=== PATIENT | female | born 1960 | race Caucasian/White ===

== ENCOUNTER 2018-10-27 11:39 | Emergency (ER) | payer SELFPAY ==
[2018-10-27] VITALS (7 sets, daily range): BP systolic 169–183; BP diastolic 90–108; PULSE 80–100; RESP 13–29; TEMP 36.3–36.8; O2SAT 96–99; BMI 25.8
--- NOTE | 2018-10-27 11:46 | DI.RAD.S_ITS ---
PROCEDURE: XR CHEST 1V INDICATIONS: chest pain TECHNIQUE: One view of the chest was acquired. COMPARISON: None. FINDINGS: Surgical changes and devices: None. Lungs and pleura: Lungs are clear. No pleural effusions or pneumothorax. Mediastinum: Mediastinal contours appear normal. Heart size is normal. Bones and chest wall: No suspicious bony lesions. Overlying soft tissues appear unremarkable. IMPRESSION: No acute pulmonary process. Dictated by: Norma Harper M.D. on 10/27/2018 at 12:15 Approved by: Norma Harper M.D. on 10/27/2018 at 12:15
--- NOTE | 2018-10-27 11:52 | ED.CHESTPAIN ---
HPI - Chest Pain General Chief Complaint: Chest Pain Stated Complaint: Chest Pain Time Seen by Provider: 10/27/18 11:46 Source: patient, EMS and police Mode of arrival: EMS Limitations: no limitations History of Present Illness HPI narrative: 58-year-old female smoker with cardiac history presents by EMS and police with sudden onset retrosternal chest pressure that started while she was being arrested this morning. She states the pain was squeezing and pressure-like but denies radiation, provocation. She states that it got better when the medics gave her aspirin and nitro. She denies associated symptoms such as diaphoresis, nausea, vomiting or shortness of breath but she did feel a bit lightheaded. She had CT while incarcerated in 2002 but has had no provocative testing or ongoing cardiac evaluations since then. She does have a history of hypertension and most recently took her metoprolol late last night. She denies any recent history of injury, long distance travel, blood clots or other risks for pulmonary embolism MD complaint: chest pain Onset (ago): minute(s) Duration: now resolved Severity: moderate Severity scale (1-10): 7 Quality: tightness Pain radiation: none Relieving factors: nitroglycerin Exacerbating factors: nothing Treatments prior to arrival chest pain: aspirin and nitroglycerin Related Data On Oral Contraceptives: No Allergies Allergy/AdvReac Type Severity Reaction Status Date / Time No Known Drug Allergies Allergy Verified 10/27/18 12:25 Review of Systems Constitutional Denies chills, Denies fever(s), Denies lethargy and Denies weakness Eyes Denies change in vision, Denies eye discharge, Denies irritation and Denies loss of vision ENT Ears, Nose, Mouth, and Throat: Denies change in voice, Denies neck pain and Denies sore throat Cardiovascular Reports chest pain, Denies irregular heart rhythm, Reports lightheadedness, Denies palpitations, Reports dyspnea, Denies dyspnea on exertion and Denies orthopnea Respiratory Denies cough, Reports dyspnea, Denies dyspnea on exertion and Denies wheezing Gastrointestinal Gastrointestinal: Denies abdominal pain, Denies change in bowel habits, Denies diarrhea, Denies nausea and Denies vomiting Genitourinary Denies hematuria, Denies flank pain, Denies urinary incontinence and Denies urinary urgency Musculoskeletal Denies neck pain Integumentary/Breasts Denies pruritus, Denies erythema, Denies rash and Denies wounds Neurologic Denies confusion, Denies loss of vision and Denies weakness Psychiatric Denies anxiety, Denies confusion, Denies depression, Denies homicidal ideation and Denies suicidal ideation Endocrine Denies palpitations Hematologic/Lymphatic Denies easy bruising Allergic/Immunologic Denies wheezing [facility] Medical History (Updated 10/27/18 @ 15:02 by Domingo Blackman DO) CAD (coronary artery disease) (Acute) HTN (hypertension) (Acute) Hyperlipidemia (Acute) Social History Smoking Status: Current every day smoker Social History Smoking Status: Current every day smoker Exam Narrative Exam Narrative: GENERAL: 58F appears state age, in no obvious distress HEAD: Atraumatic. Normocephalic. No temporal or scalp tenderness. EYES: Pupils equal round and reactive. Extraocular motions intact. No scleral icterus. No injection or drainage. ENT: Nose without bleeding, purulent drainage or septal hematoma. Throat without erythema, tonsillar hypertrophy or exudate. Uvula midline. Airway patent. NECK: Trachea midline. No JVD or lymphadenopathy. Supple, nontender, no meningeal signs. CARDIOVASCULAR: Regular rate and rhythm without murmurs, gallops, or rubs. RESPIRATORY: Clear to auscultation. Breath sounds equal bilaterally. No wheezes, rales, or rhonchi. GASTROINTESTINAL: Abdomen soft, non-tender, nondistended. No hepato-splenomegaly, or palpable masses. No guarding. EXTREMITIES: No clubbing, cyanosis, or edema. No joint tenderness, effusion, or edema noted. BACK: Nontender without deformity or crepitance. No flank tenderness. NEURO: AOx3. SKIN: No rash or erythema. Initial Vital Signs Initial Vital Signs: Vital Signs Temperature 98.2 F 10/27/18 11:41 Pulse Rate 100 H 10/27/18 11:41 Respiratory Rate 29 H 10/27/18 11:41 Blood Pressure 172/102 H 10/27/18 11:41 Scores HEART Score Heart Score history: Slightly Suspicious Heart Score EKG: Normal Heart Score Age: 45-64 years old Heart Score risk factors: > 3 risk factors or hx of atherosclerotic disease Heart Score troponin: < or = to normal limit Heart Score Total: 3 Course Orders Ordered: ED Orders 10/27/18 11:46 XR chest 1V Stat EKG-12 Lead Stat 10/27/18 12:15 Complete Blood Count AUTO DIFF Stat Comprehensive Metabolic Panel Stat Lipase Stat Partial Thromboplastin Time Stat Prothrombin Time INR Stat Troponin & CK Cardiac Panel Stat 10/27/18 14:07 Troponin I Stat Discontinued Medications Labetalol HCl (Trandate) 10 mg IV NOW ONE Stop: 10/27/18 14:59 Last Admin: 10/27/18 15:01 Dose: Not Given Metoprolol Tartrate (Lopressor) 50 mg PO NOW ONE Stop: 10/27/18 14:59 Last Admin: 10/27/18 15:02 Dose: 50 mg Vital Signs - 8 hr 10/27/18 11:41 10/27/18 12:30 10/27/18 13:00 Temperature 98.2 F Pulse Rate 100 H 82 80 Respiratory Rate 29 H 15 13 Blood Pressure 172/102 H Blood Pressure [Left Arm] 169/97 H 171/96 H Pulse Oximetry 96 96 10/27/18 14:36 10/27/18 15:05 10/27/18 15:18 Temperature Pulse Rate 85 83 83 Respiratory Rate 22 20 Blood Pressure Blood Pressure [Left Arm] 178/108 H 183/98 H 171/90 H Pulse Oximetry 98 97 10/27/18 15:28 Temperature 97.4 F L Pulse Rate 84 Respiratory Rate 17 Blood Pressure 172/90 H Blood Pressure [Left Arm] Pulse Oximetry 99 MDM - Chest Pain Lab Data Result diagrams: 10/27/18 12:15 10/27/18 12:15 Lab Results 10/27/18 10/27/18 10/27/18 Range/Units 12:15 12:15 12:15 WBC 7.9 (4.5-11.0) X10^3/uL RBC 4.23 (4.0-5.2) X10^6/uL Hgb 12.7 (12.0-16.0) g/dL Hct 37.1 (36-46) % MCV 87.7 (80-100) fL MCH 29.9 (26-34) PG MCHC 34.1 (30-36) % RDW 13.4 (11.6-14.8) % Plt Count 213 (150-400) X10^3/uL Neut % (Auto) 62.6 (50-75) % Lymph % (Auto) 27.9 (25-40) % [place] % (Auto) 5.6 (3-14) % Eos % (Auto) 3.4 (2-4) % Baso % (Auto) 0.5 (0-2) % Neut # (Auto) 5000 (3112-8806) /uL Lymph # (Auto) 2200 (8923-4777) /uL [place] # (Auto) 400 (0-900) /uL Eos # (Auto) 300 (0-450) /uL Baso # (Auto) 0 (0-100) /uL PT 11.1 (10.1-12.7) SECONDS INR 1.0 (0.9-1.3) APTT 31 (26.4-36.2) SECONDS Sodium 139 (137-145) mmol/L Potassium 3.7 (3.4-5.1) mmol/L Chloride 101 (98-107) mmol/L Carbon Dioxide 30 (22-32) mmol/L BUN 13 (7-17) mg/dL Creatinine 0.80 (0.52-1.04) mg/dL Estimated GFR > 60.0 (>60) mL/min BUN/Creatinine Ratio 16.3 (6-22) Glucose 99 (70-100) mg/dL Calcium 9.4 (8.4-10.2) mg/dL Total Bilirubin 0.3 (0.2-1.3) mg/dL AST 20 (14-36) IU/L ALT 22 (9-52) IU/L Alkaline Phosphatase 107 (38-126) U/L Total Creatine Kinase 66 (30-135) U/L CK-MB (CK-2) TNP CK-MB (CK-2) Rel Index TNP Troponin I < 0.012 (0.01-0.034) ng/mL Total Protein 7.6 (6.3-8.2) g/dL Albumin 4.2 (3.5-5.0) g/dL Globulin 3.4 (1.7-4.1) g/dL Albumin/Globulin Ratio 1.2 (1.0-2.8) Lipase 37 (23-300) U/L 10/27/18 Range/Units 14:07 WBC (4.5-11.0) X10^3/uL RBC (4.0-5.2) X10^6/uL Hgb (12.0-16.0) g/dL Hct (36-46) % MCV (80-100) fL MCH (26-34) PG MCHC (30-36) % RDW (11.6-14.8) % Plt Count (150-400) X10^3/uL Neut % (Auto) (50-75) % Lymph % (Auto) (25-40) % [place] % (Auto) (3-14) % Eos % (Auto) (2-4) % Baso % (Auto) (0-2) % Neut # (Auto) (4560-3997) /uL Lymph # (Auto) (4372-5297) /uL [place] # (Auto) (0-900) /uL Eos # (Auto) (0-450) /uL Baso # (Auto) (0-100) /uL PT (10.1-12.7) SECONDS INR (0.9-1.3) APTT (26.4-36.2) SECONDS Sodium (137-145) mmol/L Potassium (3.4-5.1) mmol/L Chloride (98-107) mmol/L Carbon Dioxide (22-32) mmol/L BUN (7-17) mg/dL Creatinine (0.52-1.04) mg/dL Estimated GFR (>60) mL/min BUN/Creatinine Ratio (6-22) Glucose (70-100) mg/dL Calcium (8.4-10.2) mg/dL Total Bilirubin (0.2-1.3) mg/dL AST (14-36) IU/L ALT (9-52) IU/L Alkaline Phosphatase (38-126) U/L Total Creatine Kinase (30-135) U/L CK-MB (CK-2) CK-MB (CK-2) Rel Index Troponin I < 0.012 (0.01-0.034) ng/mL Total Protein (6.3-8.2) g/dL Albumin (3.5-5.0) g/dL Globulin (1.7-4.1) g/dL Albumin/Globulin Ratio (1.0-2.8) Lipase (23-300) U/L Imaging Data Chest x-ray: Radiologist's impression: XRay Report Signed Patient: Minerva Garcia LMR#: [id number] : 1Acct:[id number] Age/Sex: 58 / FDate of Service: 10/27/18 Loc: ED Accession Number: [id number] Procedure: XR chest 1V Ordering Provider: Domingo Blackman D.O. PROCEDURE: XR CHEST 1V INDICATIONS: chest pain TECHNIQUE: One view of the chest was acquired. COMPARISON: None. FINDINGS: Surgical changes and devices: None. Lungs and pleura: Lungs are clear. No pleural effusions or pneumothorax. Mediastinum: Mediastinal contours appear normal. Heart size is normal. Bones and chest wall: No suspicious bony lesions. Overlying soft tissues appear unremarkable. IMPRESSION: No acute pulmonary process. Dictated by: Norma Harper M.D. on 10/27/2018 at 12:15 Approved by: Norma Harper M.D. on 10/27/2018 at 12:15 ECG Data Attestation: I personally reviewed and interpreted this ECG as follows: Prior ECG tracings: not available for review Interpretation: EKG is normal sinus rhythm rate [ 98] and free of any signs of ischemia or ectopy. No ST segmental elevation or depression. No T wave inversions MDM Narrative Medical decision making narrative: Multiple etiologies for patient's symptoms considered including: [Coronary disease versus hypertension versus other] Patient was completely asymptomatic for the duration of her visit. Attends and thought not to be cause of discomfort as she remained elevated and asymptomatic. Findings and discharge diagnosis discussed with patient/family followed by verbalization of understanding Return precautions discussed with patient/family whom verbalize understanding. Discharge Plan Departure Patient Disposition: Home Clinical Impression: Medical clearance for incarceration Chest pain Qualifiers: Chest pain type: other chest pain Qualified Code(s): R07.89 - Other chest pain Hypertension Qualifiers: Hypertension type: essential hypertension Qualified Code(s): I10 - Essential (primary) hypertension Discharge Date/Time: 10/27/18 15:30 Interventions: ED Discharge Assessment Last Done: 10/27/18 15:28 Instructions: DI for Chest Pain Activity Restrictions/Additional Instructions: *You have been diagnosed with [ chest pain, and high blood pressure. You're EKGs are unremarkable and multiple troponins are in the normal range. YOU HAVE BEEN MEDICALLY CLEARED FOR INCARCERATION ] *What to do: *Take medications as directed *Follow up with your primary care provider in 2-3 days, call for an appointment. Let them know you were seen in the Emergency Department and that we ask that you be seen in follow up *Return to ER if you should have any new, worsening or concerning symptoms
--- NOTE | 2018-10-27 11:59 | ED_ITS ---
HPI - Chest Pain General Chief Complaint: Chest Pain Stated Complaint: Chest Pain Time Seen by Provider: 10/27/18 11:46 Source: patient, EMS and police Mode of arrival: EMS Limitations: no limitations History of Present Illness HPI narrative: 58-year-old female smoker with cardiac history presents by EMS and police with sudden onset retrosternal chest pressure that started while she was being arrested this morning. She states the pain was squeezing and pressure-like but denies radiation, provocation. She states that it got better when the medics gave her aspirin and nitro. She denies associated symptoms such as diaphoresis, nausea, vomiting or shortness of breath but she did feel a bit lightheaded. She had [place] while incarcerated in 2002 but has had no provocative testing or ongoing cardiac evaluations since then. She does have a history of hypertension and most recently took her metoprolol late last night. She denies any recent history of injury, long distance travel, blood clots or other risks for pulmonary embolism MD complaint: chest pain Onset (ago): minute(s) Duration: now resolved Severity: moderate Severity scale (1-10): 7 Quality: tightness Pain radiation: none Relieving factors: nitroglycerin Exacerbating factors: nothing Treatments prior to arrival chest pain: aspirin and nitroglycerin Related Data On Oral Contraceptives: No Allergies Allergy/AdvReac Type Severity Reaction Status Date / Time No Known Drug Allergies Allergy Verified 10/27/18 12:25 Review of Systems Constitutional Denies chills, Denies fever(s), Denies lethargy and Denies weakness Eyes Denies change in vision, Denies eye discharge, Denies irritation and Denies loss of vision ENT Ears, Nose, Mouth, and Throat: Denies change in voice, Denies neck pain and Denies sore throat Cardiovascular Reports chest pain, Denies irregular heart rhythm, Reports lightheadedness, Denies palpitations, Reports dyspnea, Denies dyspnea on exertion and Denies orthopnea Respiratory Denies cough, Reports dyspnea, Denies dyspnea on exertion and Denies wheezing Gastrointestinal Gastrointestinal: Denies abdominal pain, Denies change in bowel habits, Denies diarrhea, Denies nausea and Denies vomiting Genitourinary Denies hematuria, Denies flank pain, Denies urinary incontinence and Denies urinary urgency Musculoskeletal Denies neck pain Integumentary/Breasts Denies pruritus, Denies erythema, Denies rash and Denies wounds Neurologic Denies confusion, Denies loss of vision and Denies weakness Psychiatric Denies anxiety, Denies confusion, Denies depression, Denies homicidal ideation and Denies suicidal ideation Endocrine Denies palpitations Hematologic/Lymphatic Denies easy bruising Allergic/Immunologic Denies wheezing [facility] Medical History (Updated 10/27/18 @ 15:02 by Domingo Blackman DO) CAD (coronary artery disease) (Acute) HTN (hypertension) (Acute) Hyperlipidemia (Acute) Social History Smoking Status: Current every day smoker Social History Smoking Status: Current every day smoker Exam Narrative Exam Narrative: GENERAL: 58F appears state age, in no obvious distress HEAD: Atraumatic. Normocephalic. No temporal or scalp tenderness. EYES: Pupils equal round and reactive. Extraocular motions intact. No scleral icterus. No injection or drainage. ENT: Nose without bleeding, purulent drainage or septal hematoma. Throat without erythema, tonsillar hypertrophy or exudate. Uvula midline. Airway patent. NECK: Trachea midline. No JVD or lymphadenopathy. Supple, nontender, no meningeal signs. CARDIOVASCULAR: Regular rate and rhythm without murmurs, gallops, or rubs. RESPIRATORY: Clear to auscultation. Breath sounds equal bilaterally. No wheezes, rales, or rhonchi. GASTROINTESTINAL: Abdomen soft, non-tender, nondistended. No hepato- splenomegaly, or palpable masses. No guarding. EXTREMITIES: No clubbing, cyanosis, or edema. No joint tenderness, effusion, or edema noted. BACK: Nontender without deformity or crepitance. No flank tenderness. NEURO: AOx3. SKIN: No rash or erythema. Initial Vital Signs Initial Vital Signs: Vital Signs Temperature 98.2 F 10/27/18 11:41 Pulse Rate 100 H 10/27/18 11:41 Respiratory Rate 29 H 10/27/18 11:41 Blood Pressure 172/102 H 10/27/18 11:41 Scores HEART Score Heart Score history: Slightly Suspicious Heart Score EKG: Normal Heart Score Age: 45-64 years old Heart Score risk factors: > 3 risk factors or hx of atherosclerotic disease Heart Score troponin: < or = to normal limit Heart Score Total: 3 Course Orders Ordered: ED Orders 10/27/18 11:46 XR chest 1V Stat EKG-12 Lead Stat 10/27/18 12:15 Complete Blood Count AUTO DIFF Stat Comprehensive Metabolic Panel Stat Lipase Stat Partial Thromboplastin Time Stat Prothrombin Time INR Stat Troponin & CK Cardiac Panel Stat 10/27/18 14:07 Troponin I Stat Discontinued Medications Labetalol HCl (Trandate) 10 mg IV NOW ONE Stop: 10/27/18 14:59 Last Admin: 10/27/18 15:01 Dose: Not Given Metoprolol Tartrate (Lopressor) 50 mg PO NOW ONE Stop: 10/27/18 14:59 Last Admin: 10/27/18 15:02 Dose: 50 mg Vital Signs - 8 hr 10/27/18 11:41 10/27/18 12:30 10/27/18 13:00 Temperature 98.2 F Pulse Rate 100 H 82 80 Respiratory Rate 29 H 15 13 Blood Pressure 172/102 H Blood Pressure [Left Arm] 169/97 H 171/96 H Pulse Oximetry 96 96 10/27/18 14:36 10/27/18 15:05 10/27/18 15:18 Temperature Pulse Rate 85 83 83 Respiratory Rate 22 20 Blood Pressure Blood Pressure [Left Arm] 178/108 H 183/98 H 171/90 H Pulse Oximetry 98 97 10/27/18 15:28 Temperature 97.4 F L Pulse Rate 84 Respiratory Rate 17 Blood Pressure 172/90 H Blood Pressure [Left Arm] Pulse Oximetry 99 MDM - Chest Pain Lab Data Result diagrams: 10/27/18 12:15 10/27/18 12:15 Lab Results 10/27/18 10/27/18 10/27/18 Range/Units 12:15 12:15 12:15 WBC 7.9 (4.5-11.0) X10^3/uL RBC 4.23 (4.0-5.2) X10^6/uL Hgb 12.7 (12.0-16.0) g/dL Hct 37.1 (36-46) % MCV 87.7 (80-100) fL MCH 29.9 (26-34) PG MCHC 34.1 (30-36) % RDW 13.4 (11.6-14.8) % Plt Count 213 (150-400) X10^3/uL Neut % (Auto) 62.6 (50-75) % Lymph % (Auto) 27.9 (25-40) % [place] % (Auto) 5.6 (3-14) % Eos % (Auto) 3.4 (2-4) % Baso % (Auto) 0.5 (0-2) % Neut # (Auto) 5000 (1525-2941) /uL Lymph # (Auto) 2200 (1685-4312) /uL [place] # (Auto) 400 (0-900) /uL Eos # (Auto) 300 (0-450) /uL Baso # (Auto) 0 (0-100) /uL PT 11.1 (10.1-12.7) SECONDS INR 1.0 (0.9-1.3) APTT 31 (26.4-36.2) SECONDS Sodium 139 (137-145) mmol/L Potassium 3.7 (3.4-5.1) mmol/L Chloride 101 (98-107) mmol/L Carbon Dioxide 30 (22-32) mmol/L BUN 13 (7-17) mg/dL Creatinine 0.80 (0.52-1.04) mg/dL Estimated GFR > 60.0 (>60) mL/min BUN/Creatinine Ratio 16.3 (6-22) Glucose 99 (70-100) mg/dL Calcium 9.4 (8.4-10.2) mg/dL Total Bilirubin 0.3 (0.2-1.3) mg/dL AST 20 (14-36) IU/L ALT 22 (9-52) IU/L Alkaline Phosphatase 107 (38-126) U/L Total Creatine Kinase 66 (30-135) U/L CK-MB (CK-2) TNP CK-MB (CK-2) Rel Index TNP Troponin I < 0.012 (0.01-0.034) ng/mL Total Protein 7.6 (6.3-8.2) g/dL Albumin 4.2 (3.5-5.0) g/dL Globulin 3.4 (1.7-4.1) g/dL Albumin/Globulin Ratio 1.2 (1.0-2.8) Lipase 37 (23-300) U/L 10/27/18 Range/Units 14:07 WBC (4.5-11.0) X10^3/uL RBC (4.0-5.2) X10^6/uL Hgb (12.0-16.0) g/dL Hct (36-46) % MCV (80-100) fL MCH (26-34) PG MCHC (30-36) % RDW (11.6-14.8) % Plt Count (150-400) X10^3/uL Neut % (Auto) (50-75) % Lymph % (Auto) (25-40) % [place] % (Auto) (3-14) % Eos % (Auto) (2-4) % Baso % (Auto) (0-2) % Neut # (Auto) (7603-7892) /uL Lymph # (Auto) (3245-0929) /uL [place] # (Auto) (0-900) /uL Eos # (Auto) (0-450) /uL Baso # (Auto) (0-100) /uL PT (10.1-12.7) SECONDS INR (0.9-1.3) APTT (26.4-36.2) SECONDS Sodium (137-145) mmol/L Potassium (3.4-5.1) mmol/L Chloride (98-107) mmol/L Carbon Dioxide (22-32) mmol/L BUN (7-17) mg/dL Creatinine (0.52-1.04) mg/dL Estimated GFR (>60) mL/min BUN/Creatinine Ratio (6-22) Glucose (70-100) mg/dL Calcium (8.4-10.2) mg/dL Total Bilirubin (0.2-1.3) mg/dL AST (14-36) IU/L ALT (9-52) IU/L Alkaline Phosphatase (38-126) U/L Total Creatine Kinase (30-135) U/L CK-MB (CK-2) CK-MB (CK-2) Rel Index Troponin I < 0.012 (0.01-0.034) ng/mL Total Protein (6.3-8.2) g/dL Albumin (3.5-5.0) g/dL Globulin (1.7-4.1) g/dL Albumin/Globulin Ratio (1.0-2.8) Lipase (23-300) U/L Imaging Data Chest x-ray: Radiologist's impression: XRay Report Signed Patient: Minerva Garcia LMR#: [id number] : 1Acct:[id number] Age/Sex: 58 / FDate of Service: 10/27/18 Loc: ED Accession Number: [id number] Procedure: XR chest 1V Ordering Provider: Domingo Blackman D.O. PROCEDURE: XR CHEST 1V INDICATIONS: chest pain TECHNIQUE: One view of the chest was acquired. COMPARISON: None. FINDINGS: Surgical changes and devices: None. Lungs and pleura: Lungs are clear. No pleural effusions or pneumothorax. Mediastinum: Mediastinal contours appear normal. Heart size is normal. Bones and chest wall: No suspicious bony lesions. Overlying soft tissues appear unremarkable. IMPRESSION: No acute pulmonary process. Dictated by: Norma Harper M.D. on 10/27/2018 at 12:15 Approved by: Norma Harper M.D. on 10/27/2018 at 12:15 ECG Data Attestation: I personally reviewed and interpreted this ECG as follows: Prior ECG tracings: not available for review Interpretation: EKG is normal sinus rhythm rate [ 98] and free of any signs of ischemia or ectopy. No ST segmental elevation or depression. No T wave inversion s MDM Narrative Medical decision making narrative: Multiple etiologies for patient's symptoms considered including: [Coronary disease versus hypertension versus other] Patient was completely asymptomatic for the duration of her visit. Attends and thought not to be cause of discomfort as she remained elevated and asymptomatic. Findings and discharge diagnosis discussed with patient/family followed by verbalization of understanding Return precautions discussed with patient/family whom verbalize understanding. Discharge Plan Departure Patient Disposition: Home Clinical Impression: Medical clearance for incarceration Chest pain Qualifiers: Chest pain type: other chest pain Qualified Code(s): R07.89 - Other chest pain Hypertension Qualifiers: Hypertension type: essential hypertension Qualified Code(s): I10 - Essential (primary) hypertension Discharge Date/Time: 10/27/18 15:30 Interventions: ED Discharge Assessment Last Done: 10/27/18 15:28 Instructions: DI for Chest Pain Activity Restrictions/Additional Instructions: *You have been diagnosed with [ chest pain, and high blood pressure. You're EKGs are unremarkable and multiple troponins are in the normal range. YOU HAVE BEEN MEDICALLY CLEARED FOR INCARCERATION ] *What to do: *Take medications as directed *Follow up with your primary care provider in 2-3 days, call for an appointment. Let them know you were seen in the Emergency Department and that we ask that you be seen in follow up *Return to ER if you should have any new, worsening or concerning symptoms
--- NOTE | 2018-10-27 12:05 | PC.NURSE ---
Attempted to initiate IV access. Patient has significant scarring from hx of IV drug abuse. Provider ok with lab draw. Lab called.
[2018-10-27 12:45] LABS: Add Manual Diff / Slide Review NO; Basophils Absolute Auto 0 /uL (0-100); Basophils Percent Auto 0.5 % (0-2); Eosinophils Absolute Auto 300 /uL (0-450); Eosinophils Percent Auto 3.4 % (2-4); Hematocrit 37.1 % (36-46); Hemoglobin 12.7 g/dL (12.0-16.0); Lymphocytes Absolute Auto 2200 /uL (1100-4500); Lymphocytes Percent Auto 27.9 % (25-40); Mean Corpuscular HGB Conc 34.1 % (30-36); Mean Corpuscular Hemoglobin 29.9 PG (26-34); Mean Corpuscular Volume 87.7 fL (80-100); Monocytes Absolute Auto 400 /uL (0-900); Monocytes Percent Auto 5.6 % (3-14); Neutrophils Absolute Auto 5000 /uL (1500-7000); Neutrophils Percent Auto 62.6 % (50-75); Platelet Count 213 X10^3/uL (150-400); Red Blood Cell Count 4.23 X10^6/uL (4.0-5.2); Red Cell Distribution Width 13.4 % (11.6-14.8); White Blood Cell Count 7.9 X10^3/uL (4.5-11.0)
[2018-10-27 12:56] LABS: Prothrombin Time 11.1 SECONDS (10.1-12.7)
[2018-10-27 12:58] LABS: PTT Partial Thromboplastin Tim 31 SECONDS (26.4-36.2)
[2018-10-27 13:01] LABS: Alanine Aminotransferase 22 IU/L (9-52); Albumin 4.2 g/dL (3.5-5.0); Albumin Globulin Ratio 1.2 (1.0-2.8); Alkaline Phosphatase 107 U/L (38-126); Aspartate Aminotransferase 20 IU/L (14-36); BUN Creatinine Ratio 16.3 (6-22); Bilirubin Total 0.3 mg/dL (0.2-1.3); Blood Urea Nitrogen 13 mg/dL (7-17); Calcium 9.4 mg/dL (8.4-10.2); Carbon Dioxide 30 mmol/L (22-32); Chloride 101 mmol/L (98-107); Creatine Kinase 66 U/L (30-135); Estimated Glomerular Filt Rate > 60.0 mL/min (>60); Globulin 3.4 g/dL (1.7-4.1); Glucose 99 mg/dL (70-100); HEMOLYSIS < 15 (0-50); Lipase 37 U/L (23-300); Potassium 3.7 mmol/L (3.4-5.1); Sodium 139 mmol/L (137-145); Total Protein 7.6 g/dL (6.3-8.2)
[2018-10-27 13:13] LABS: Troponin I < 0.012 ng/mL (0.01-0.034)
[2018-10-27 14:52] LABS: Troponin I < 0.012 ng/mL (0.01-0.034)
[2018-10-27] MEDS: METOPROLOL IR 25 MG TABLET 50 MG PO (15:02)
== END 2018-10-27 15:30 | disposition home or self-care (01) ==
PROVIDERS: Emergency Provider Emergency Medicine
DX: R07.89 Other chest pain (principal)
CPT/HCPCS: 36415; 71045; 80053; 82550; 83690; 84484; 85025; 85610; 85730; 93005; 93010; 99283; 99285

== ENCOUNTER 2020-12-28 18:38 | Emergency (ER) | payer MEDICARE, SELFPAY ==
[2020-12-28 18:46] VITALS: BP 208/121; PULSE 109; RESP 20; TEMP 36.6; O2SAT 97
== END 2020-12-28 20:21 | disposition left against medical advice (07) ==
CPT/HCPCS: 99281